=== PATIENT | female | born 1995 | race Caucasian/White ===

== ENCOUNTER 2018-10-09 04:24 | Emergency (ER) | payer OTHER ==
[2018-10-09] MEDS ORDERED: SODIUM CHLORIDE 1,000 ML IV STA (05:13)
[2018-10-09 05:28] LABS: BASO % 0.7 % (0-2.0); EOS % 3.3 % (0-4.5); HEMOGLOBIN 13.5 GM/dL (10.7-15.3); MCH 30.1 pg (25.7-33.7); MCHC 33.7 g/dl (32.0-36.0); MEAN CELL VOLUME 89.4 fl (80-96); MONO % 5.6 % (3.8-10.2); NEUT % 52.4 % (42.8-82.8); PLATELET COUNT 270 K/MM3 (134-434); RBC 4.48 M/mm3 (3.60-5.2); RDW 12.6 % (11.6-15.6)
[2018-10-09 05:39] VITALS: BMI 25.7
[2018-10-09 05:46] VITALS: BP 112/77; TEMP 97.6
[2018-10-09 06:01] LABS: ALBUMIN 4.4 g/dl (3.4-5.0); ALK PHOS 57 U/L (45-117); ANION GAP 11 MMOL/L (8-16); BILIRUBIN,TOTAL 0.2 mg/dL (0.2-1); BLOOD UREA NITROGEN 10 mg/dL (7-18); CALCIUM 8.6 mg/dL (8.5-10.1); CHLORIDE 106 mmol/L (98-107); CO2 23 mmol/L (21-32); CREATININE 0.6 mg/dL (0.55-1.3); GLUCOSE,RANDOM 77 mg/dL (74-106); POTASSIUM 4.1 mmol/L (3.5-5.1); SGOT/AST 19 U/L (15-37); SGPT/ALT 28 U/L (13-61); SODIUM 139 mmol/L (136-145); TOT PROT 8.1 g/dl (6.4-8.2)
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
[2018-10-09 06:10] LABS: INR 0.98 (0.83-1.09); PROTHROMBIN TIME (PATIENT) 11.6 SEC (9.7-13.0)
[2018-10-09 06:12] LABS: ACTIVATED PTT 31.4 SECONDS (25.2-36.5)
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
[2018-10-09] MEDS ORDERED: DIPHTH,PERTUSS(ACELL),TET 0.5 ML DISP.SYRIN IM ONE (06:48)
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
--- NOTE | 2018-10-09 08:25 | PDOC ---
*Physical Exam - Vital Signs Last Vital Signs Temp Pulse Resp BP Pulse Ox 97.6 F 63 20 112/77 100 10/09/18 05:15 10/09/18 05:15 10/09/18 05:15 10/09/18 05:15 10/09/18 05:15 - Physical Exam General Appearance: Yes: Appropriately Dressed Neck: positive: Trachea midline Respiratory/Chest: positive: Lungs Clear, Normal Breath Sounds Cardiovascular: positive: Regular Rhythm, Regular Rate, S1, S2 Female Pelvic Exam: positive: normal external exam Musculoskeletal: positive: Normal Inspection Extremity: positive: Normal Capillary Refill Integumentary: positive: Normal Color, Dry, Warm, Other (pt with small superficial laceration right hand) Neurologic: positive: Fully Oriented, Alert, Normal Mood/Affect ED Treatment Course - LABORATORY CBC & Chemistry Diagram: 10/09/18 05:20 10/09/18 05:20 - ADDITIONAL ORDERS Additional order review: Laboratory Results 10/09/18 10/09/18 10/09/18 05:20 05:20 05:20 PT with INR INR PTT (Actin FS) Sodium 139 Potassium 4.1 Chloride 106 Carbon Dioxide 23 Anion Gap 11 BUN 10 Creatinine 0.6 Creat Clearance w eGFR > 60 Random Glucose 77 Calcium 8.6 Total Bilirubin 0.2 AST 19 ALT 28 Alkaline Phosphatase 57 Creatine Kinase 142 Troponin I < 0.02 Total Protein 8.1 Albumin 4.4 Beta HCG, Quant < 1.0 Alcohol, Quantitative 171.0 H Blood Type A POSITIVE Antibody Screen Negative 10/09/18 05:20 PT with INR 11.60 INR 0.98 PTT (Actin FS) 31.4 Sodium Potassium Chloride Carbon Dioxide Anion Gap BUN Creatinine Creat Clearance w eGFR Random Glucose Calcium Total Bilirubin AST ALT Alkaline Phosphatase Creatine Kinase Troponin I Total Protein Albumin Beta HCG, Quant Alcohol, Quantitative Blood Type Antibody Screen 10/09/18 05:20 RBC 4.48 MCV 89.4 MCHC 33.7 RDW 12.6 MPV 8.0 Neutrophils % 52.4 Lymphocytes % 38.0 Monocytes % 5.6 Eosinophils % 3.3 Basophils % 0.7 - Medications Given in the ED: ED Medications Discontinued Medications Generic Name Dose Route Start Last Admin Trade Name Freq PRN Reason Stop Dose Admin Diphtheria/Tetanus/Acell Pertussis 0.5 ml 10/09/18 06:48 10/09/18 06:57 Boostrix - IM 10/09/18 06:49 0.5 ml .ONCE ONE Administration Sodium Chloride 1,000 mls @ 1,000 mls/hr 10/09/18 05:13 10/09/18 05:26 Normal Saline - IV 10/09/18 06:12 1,000 mls/hr ASDIR STA Administration *DC/Admit/Observation/Transfer Diagnosis at time of Disposition: Trauma - Referrals - Patient Instructions - Post Discharge Activity
[2018-10-09 09:51] VITALS: PULSE 78
[2018-10-09 10:07] LABS: URINE APPEARANCE CLEAR; URINE BILIRUBIN NEGATIVE (<2.0 mg/dL); URINE COLOR STRAW; URINE GLUCOSE (UA) NEGATIVE (NEGATIVE); URINE KETONE NEGATIVE (NEGATIVE); URINE LEUK ESTERASE NEGATIVE (NEGATIVE); URINE NITRITE NEGATIVE (NEGATIVE); URINE PROTEIN NEGATIVE (NEGATIVE); URINE UROBILINOGEN NEGATIVE mg/dL (0.2-1.0)
[2018-10-09 11:18] LABS: COCAINE, UR NEGATIVE ng/ml (CUTOFF=300); METHADONE, UR NEGATIVE ng/ml (CUTOFF=300); OPIATES, URI NEGATIVE ng/ml (CUTOFF=300); PHENCYCLIDINE,URINE NEGATIVE ng/ml (CUTOFF=25); URINE AMPHETAMINES NEGATIVE ng/ml (CUTOFF=500); URINE BARBITURATES NEGATIVE ng/ml (CUTOFF=200); URINE BENZODIAZEPINES NEGATIVE ng/ml (CUTOFF=200)
--- NOTE | 2018-10-10 10:08 | EKG ---
Test Reason : Blood Pressure : / mmHG Vent. Rate : 071 BPM Atrial Rate : 071 BPM P-R Int : 178 ms QRS Dur : 078 ms QT Int : 394 ms P-R-T Axes : 039 056 039 degrees QTc Int : 428 ms NORMAL SINUS RHYTHM NO PREVIOUS ECGS AVAILABLE Confirmed by MARBELLA HASTINGS MD ([id number]) on 10/10/2018 10:08:07 AM Referred By: Confirmed By:MARBELLA HASTINGS MD
--- NOTE | 2019-01-02 15:05 | EKG ---
Test Reason : Blood Pressure : / mmHG Vent. Rate : 080 BPM Atrial Rate : 080 BPM P-R Int : 190 ms QRS Dur : 080 ms QT Int : 384 ms P-R-T Axes : 045 048 032 degrees QTc Int : 442 ms NORMAL SINUS RHYTHM NORMAL ECG WHEN COMPARED WITH ECG OF 09-OCT-2018 06:55, NO SIGNIFICANT CHANGE WAS FOUND Confirmed by MARBELLA HASTINGS MD ([id number]) on 01/02/2019 3:04:52 PM Referred By: Confirmed By:MARBELLA HASTINGS MD
== END 2018-10-09 11:33 | disposition home or self-care (01) ==
LOC: JER 04:24
PROC: 3E0234Z Introduction of Serum, Toxoid and Vaccine into Muscle, Percutaneous Approach (ICD-10-PCS; principal; 2018-10-09)
PROC: 3E0337Z Introduction of Electrolytic and Water Balance Substance into Peripheral Vein, Percutaneous Approach (ICD-10-PCS; 2018-10-09)
DX: S69.81XA Other specified injuries of right wrist, hand and finger(s), initial encounter (principal); V49.88XA Car occupant (driver) (passenger) injured in other specified transport accidents, initial encounter; Y92.414 Local residential or business street as the place of occurrence of the external cause; Y93.89 Activity, other specified; Y99.8 Other external cause status; F10.920 Alcohol use, unspecified with intoxication, uncomplicated; Y90.6 Blood alcohol level of 120-199 mg/100 ml
CPT/HCPCS: 36415; 70450-TC; 71045-TC-FY; 72125-TC; 73130-TC-LT-FY; 73130-TC-RT-FY; 80053; 80307; 81003; 82550; 84484; 84702; 85025; 85610; 85730; 86850; 86900; 86901; 90715; 93005; 93010; 99285-25; J7030